=== PATIENT | male | born 1985 | race Caucasian/White ===

== ENCOUNTER 2022-09-23 07:21 | Emergency (ER) | payer MEDICAID ==
[~2022-09-23] VITALS: Ht 170.2 cm; Wt 76.0 kg
[2022-09-23 07:33] VITALS: BP 113/76
[2022-09-23] MEDS ORDERED: IBUPROFEN 800MG TABLET PO ONE (08:00)
[2022-09-23] MEDS ORDERED: TOPUD PO (09:42)
== END 2022-09-23 11:50 | disposition home or self-care (01) ==
LOC: ER 07:21
DX: M79.641 Pain in right hand (principal); M79.5 Residual foreign body in soft tissue
CPT/HCPCS: 73030; 73130; 99284

== ENCOUNTER 2023-08-10 13:39 | Emergency (ER) | payer MEDICAID ==
[~2023-08-10] VITALS: Ht 175.3 cm; Wt 81.0 kg
[~2023-08-10 13:39] MED LIST: TOPUD PO
[2023-08-10 14:04] VITALS: O2SAT 97
[2023-08-10] MEDS ORDERED: IBUP-2029 MT (14:59)
[2023-08-10 15:19] VITALS: BP 111/76; PULSE 77; RESP 18; TEMP 98.7
== END 2023-08-10 15:19 | disposition home or self-care (01) ==
LOC: ER 13:39
DX: S20.212A Contusion of left front wall of thorax, initial encounter (principal); W18.39XA Other fall on same level, initial encounter; Y93.89 Activity, other specified; Y92.89 Other specified places as the place of occurrence of the external cause; Y99.8 Other external cause status
CPT/HCPCS: 71101; 99283